=== PATIENT | male | born 1955 ===

== ENCOUNTER → 2017-06-02 | Outpatient (REF) ==
[2017-06-02 12:45] LABS: THYROID STIMULATING HORMONE 2.41 uIU/mL (0.465-4.680)
[2017-06-02 13:26] LABS: PSA-TOTAL 0.82 ng/mL (0-4)
== END ==
LOC: ZLAB.WCH 11:54
PROVIDERS: Family Medicine
DX: Z01.89 Encounter for other specified special examinations (principal)
CPT/HCPCS: G0103